=== PATIENT | male | born 1985 | race Two or more races ===

== ENCOUNTER 2021-11-03 12:57 | Inpatient (IN) | payer MEDICAID ==
[~2021-11-03] VITALS: Ht 172.7 cm; Wt 87.5 kg
[2021-11-03] MEDS ORDERED: RISP0.5T39 PO (16:03)
[2021-11-03] MEDS ORDERED: ZOLPIDEM TARTRATE 10 MG TABLET PO PRN (18:00)
[2021-11-03] MEDS ORDERED: LORazepam 2 MG TABLET PO PRN (18:00)
[2021-11-03] MEDS ORDERED: HALOPERIDOL 5 MG TABLET PO PRN (18:00)
[2021-11-03 18:28] VITALS: BP 146/81
[2021-11-03 20:08] VITALS: BP 128/83
[2021-11-04 00:20] VITALS: BP 115/72
[2021-11-04 07:32] LABS: BASOPHILS % (AUTO) 0.5 % (0.0-2.0); EOSINOPHILS % (AUTO) 1.9 % (1.0-6.0); HEMATOCRIT 40.8 % (41-53); HEMOGLOBIN 14.6 g/dL (13.5-17.5); LYMPHOCYTES # (AUTO) 2.8 K/uL (1.0-4.8); LYMPHOCYTES % (AUTO) 37.6 % (22.0-44.0); MEAN CORPUSCULAR HEMOGLOBIN 31.2 pg (26.0-34.0); MEAN CORPUSCULAR HGB CONC 35.8 G/dL (31.0-37.0); MEAN CORPUSCULAR VOLUME 87 fL (80-100); MONOCYTES # (AUTO) 0.5 K/uL (0.1-1.0); MONOCYTES % (AUTO) 6.5 % (2.0-9.0); NEUTROPHILS # (AUTO) 4.1 K/uL (1.8-7.7); NEUTROPHILS % (AUTO) 53.5 % (40.0-70.0); PLATELET COUNT (AUTO) 193 K/uL (150-450); RED BLOOD CELL COUNT(AUTO) 4.69 MIL/uL (4.50-5.90); RED CELL DISTRIBUTION WIDTH 13.2 % (11.5-14.5)
[2021-11-04 07:59] LABS: HEMOGLOBIN A1C 8.9 % (3.8-5.6)
[2021-11-04 08:09] LABS: ALANINE AMINOTRANSFERASE 104 U/L (12-78); ALBUMIN 3.3 g/dL (3.4-5.0); ALKALINE PHOSPHATASE 44 U/L (46-116); ANION GAP 10 mmol/L (8-16); ASPARTATE AMINOTRANSFERASE 37 U/L (15-37); BILIRUBIN,TOTAL 0.8 mg/dL (0.1-1.0); CARBON DIOXIDE 31 mmol/L (22-29); CHLORIDE 99 mmol/L (98-107); CHOL/HDL RATIO 6.7 (4.2-7.3); CHOLESTEROL 214 mg/dL (131-200); CREATININE 0.76 mg/dL (0.60-1.30); FREE T4 (FREE THYROXINE) 1.51 ng/dL (0.76-1.46); GLUCOSE,RANDOM 175 mg/dL (70-110); HDL CHOLESTEROL 32 mg/dL (40-60); POTASSIUM 3.4 mmol/L (3.5-5.1); SODIUM SERUM 140 mmol/L (136-145); THYROID STIMULATING HORMONE 1.75 uIU/mL (0.36-3.74); TOTAL PROTEIN, SERUM 6.6 g/dL (6.4-8.2); TRIGLYCERIDES 798 mg/dL (15-150); UREA NITROGEN, BLOOD 13 mg/dL (7-18)
[2021-11-04 08:10] LABS: GLOMERULAR FILTR. RATE CALC > 60 mL/min (>60)
[2021-11-04 08:12] VITALS: BP 109/65
[2021-11-04 22:38] VITALS: BP 106/69
[2021-11-04] MEDS ORDERED: MAGNESIUM HYDROXIDE SUSPENSION 30 ML UDCUP PO PRN (23:15)
[2021-11-04] MEDS ORDERED: IBUPROFEN 600 MG TABLET PO PRN (23:15)
[2021-11-04] MEDS ORDERED: BENZOCAINE/MENTHOL LOZENGE PO PRN (23:15)
[2021-11-04] MEDS ORDERED: DOCUSATE SODIUM 100 MG CAPSULE PO PRN (23:15)
[2021-11-04] MEDS ORDERED: LOPERAMIDE HCL 2 MG CAPSULE PO PRN (23:15)
[2021-11-04] MEDS ORDERED: MAG HYDROX/AL HYDROX/SIMETH ES 30 ML SUSPENSION UDCUP PO PRN (23:15)
[2021-11-04] MEDS ORDERED: ACETAMINOPHEN 325 MG TABLET PO PRN (23:15)
[2021-11-04] MEDS ORDERED: GLUCAGON,HUMAN RECOMBINANT 1 MG VIAL IM PRN (23:15)
[2021-11-04] MEDS ORDERED: POTASSIUM CHLORIDE 20 MEQ ER TABLET PO ONE (23:15)
[2021-11-04] MEDS ORDERED: BACITRACIN 28 GM OINTMENT TP PRN (23:15)
[2021-11-04] MEDS ORDERED: CloNIDine HCL 0.1 MG TABLET PO PRN (23:15)
[2021-11-04] MEDS ORDERED: OMEPRAZOLE 20 MG CAPSULE PO PRN (23:15)
[2021-11-04] MEDS ORDERED: ONDANSETRON HCL 4 MG TABLET PO PRN (23:15)
[2021-11-04] MEDS ORDERED: PETROLATUM,WHITE 28 GM JELLY TP PRN (23:15)
[2021-11-04] MEDS ORDERED: ALBUTEROL SULFATE HFA 90 MCG/PUFF 8 GM INHALER IH PRN (23:15)
[2021-11-05] MEDS: MetFORMIN HCL 500 MG TABLET PO SCH ×2 (06:26→16:31)
[2021-11-05 06:55] LABS: BASOPHILS % (AUTO) 0.8 % (0.0-2.0); EOSINOPHILS % (AUTO) 1.7 % (1.0-6.0); HEMATOCRIT 42.3 % (41-53); HEMOGLOBIN 15.2 g/dL (13.5-17.5); LYMPHOCYTES % (AUTO) 37.2 % (22.0-44.0); MEAN CORPUSCULAR HEMOGLOBIN 31.3 pg (26.0-34.0); MEAN CORPUSCULAR HGB CONC 35.9 G/dL (31.0-37.0); MEAN CORPUSCULAR VOLUME 87 fL (80-100); MONOCYTES # (AUTO) 0.5 K/uL (0.1-1.0); MONOCYTES % (AUTO) 6.7 % (2.0-9.0); NEUTROPHILS # (AUTO) 4.3 K/uL (1.8-7.7); NEUTROPHILS % (AUTO) 53.6 % (40.0-70.0); PLATELET COUNT (AUTO) 151 K/uL (150-450); RED BLOOD CELL COUNT(AUTO) 4.85 MIL/uL (4.50-5.90); RED CELL DISTRIBUTION WIDTH 13.2 % (11.5-14.5)
[2021-11-05 07:14] LABS: ALANINE AMINOTRANSFERASE 105 U/L (12-78); ALBUMIN 3.6 g/dL (3.4-5.0); ALKALINE PHOSPHATASE 50 U/L (46-116); ANION GAP 7 mmol/L (8-16); ASPARTATE AMINOTRANSFERASE 36 U/L (15-37); BILIRUBIN,TOTAL 0.8 mg/dL (0.1-1.0); CALCIUM, TOTAL 9.1 mg/dL (8.8-10.5); CARBON DIOXIDE 33 mmol/L (22-29); CHLORIDE 102 mmol/L (98-107); CREATININE 0.81 mg/dL (0.60-1.30); GLUCOSE,RANDOM 192 mg/dL (70-110); PHOSPHORUS 4.3 mg/dL (2.5-4.9); POTASSIUM 3.8 mmol/L (3.5-5.1); SODIUM SERUM 142 mmol/L (136-145); UREA NITROGEN, BLOOD 13 mg/dL (7-18)
[2021-11-05 07:16] LABS: GLOMERULAR FILTR. RATE CALC > 60 mL/min (>60)
[2021-11-05 07:45] LABS: GLUCOMETER DEV NAME(LOC) BV2X.2; GLUCOSE,POINT OF CARE 189 MG/DL (70-110)
[2021-11-05 08:34] VITALS: BP 123/79
[2021-11-05] MEDS: RisperiDONE 3 MG TABLET PO SCH ×2 (08:40→16:32)
[2021-11-05] MEDS: DIVALPROEX SODIUM 500 MG DR TABLET PO SCH ×2 (08:41→20:16)
[2021-11-05 12:06] LABS: GLUCOMETER DEV NAME(LOC) BV2X.2; GLUCOSE,POINT OF CARE 257 MG/DL (70-110)
[2021-11-05 16:46] LABS: GLUCOMETER DEV NAME(LOC) BV2X.2; GLUCOSE,POINT OF CARE 211 MG/DL (70-110)
[2021-11-05 20:16] VITALS: BP 136/82
[2021-11-05] MEDS: ATORVASTATIN CALCIUM 20 MG TABLET PO SCH (20:16)
[2021-11-05] MEDS: INSULIN LISPRO 100 UNITS/ML SQ PRN (20:32)
[2021-11-05 21:11] LABS: GLUCOMETER DEV NAME(LOC) BV2X.2; GLUCOSE,POINT OF CARE 241 MG/DL (70-110)
[2021-11-06 06:37] LABS: GLUCOMETER DEV NAME(LOC) BV2X.2; GLUCOSE,POINT OF CARE 253 MG/DL (70-110)
[2021-11-06] MEDS: MetFORMIN HCL 500 MG TABLET PO SCH ×2 (06:49→16:49)
[2021-11-06 08:08] VITALS: BP 126/78
[2021-11-06] MEDS: RisperiDONE 3 MG TABLET PO SCH ×2 (08:26→16:49)
[2021-11-06] MEDS: DIVALPROEX SODIUM 500 MG DR TABLET PO SCH ×2 (08:26→20:19)
[2021-11-06 11:20] LABS: GLUCOMETER DEV NAME(LOC) BV2X.2; GLUCOSE,POINT OF CARE 224 MG/DL (70-110)
[2021-11-06] MEDS: INSULIN LISPRO 100 UNITS/ML SQ PRN ×3 (11:43→20:28)
[2021-11-06 18:16] LABS: GLUCOMETER DEV NAME(LOC) BV2X.2; GLUCOSE,POINT OF CARE 229 MG/DL (70-110)
[2021-11-06 20:09] VITALS: BP 141/86
[2021-11-06] MEDS: ATORVASTATIN CALCIUM 20 MG TABLET PO SCH (20:19)
[2021-11-06 20:45] LABS: GLUCOMETER DEV NAME(LOC) BV2X.2; GLUCOSE,POINT OF CARE 185 MG/DL (70-110)
[2021-11-07 06:27] LABS: GLUCOMETER DEV NAME(LOC) BV2X.2; GLUCOSE,POINT OF CARE 158 MG/DL (70-110)
[2021-11-07] MEDS: MetFORMIN HCL 500 MG TABLET PO SCH ×2 (06:36→16:45)
[2021-11-07] MEDS: INSULIN LISPRO 100 UNITS/ML SQ PRN ×4 (06:37→20:34)
[2021-11-07 08:20] VITALS: BP 123/60
[2021-11-07] MEDS: RisperiDONE 3 MG TABLET PO SCH ×2 (08:26→16:45)
[2021-11-07] MEDS: DIVALPROEX SODIUM 500 MG DR TABLET PO SCH ×2 (08:26→20:26)
[2021-11-07 11:32] LABS: GLUCOMETER DEV NAME(LOC) BV2X.2; GLUCOSE,POINT OF CARE 193 MG/DL (70-110)
[2021-11-07 17:12] LABS: GLUCOMETER DEV NAME(LOC) BV2X.2; GLUCOSE,POINT OF CARE 232 MG/DL (70-110)
[2021-11-07 20:20] VITALS: BP 136/74
[2021-11-07] MEDS: ATORVASTATIN CALCIUM 20 MG TABLET PO SCH (20:26)
[2021-11-07 21:31] LABS: GLUCOMETER DEV NAME(LOC) BV2X.2; GLUCOSE,POINT OF CARE 201 MG/DL (70-110)
[2021-11-08 06:21] LABS: GLUCOMETER DEV NAME(LOC) BV2X.2; GLUCOSE,POINT OF CARE 151 MG/DL (70-110)
[2021-11-08] MEDS: MetFORMIN HCL 500 MG TABLET PO SCH ×2 (06:32→16:42)
[2021-11-08] MEDS: INSULIN LISPRO 100 UNITS/ML SQ PRN ×3 (06:32→16:44)
[2021-11-08 08:27] VITALS: BP 110/74
[2021-11-08] MEDS: RisperiDONE 3 MG TABLET PO SCH ×2 (09:25→16:42)
[2021-11-08] MEDS: DIVALPROEX SODIUM 500 MG DR TABLET PO SCH (09:25)
[2021-11-08 10:21] LABS: GLUCOMETER DEV NAME(LOC) POC.BV
[2021-11-08 11:21] LABS: GLUCOMETER DEV NAME(LOC) BV2X.2; GLUCOSE,POINT OF CARE 215 MG/DL (70-110)
[2021-11-08 16:21] LABS: GLUCOMETER DEV NAME(LOC) BV2X.2; GLUCOSE,POINT OF CARE 298 MG/DL (70-110)
[2021-11-08] MEDS ORDERED: RISP3TAB63 PO (17:55)
[2021-11-08] MEDS ORDERED: DIVA-112 PO (17:55)
[2021-11-08] MEDS ORDERED: ATOR20TA86 PO ×2 (18:28→20:36)
[2021-11-08] MEDS ORDERED: METF-1211 PO ×2 (18:29→20:36)
== END 2021-11-08 19:00 | disposition home or self-care (01) | DRG 750 ==
LOC: B2S 17:51
PROVIDERS: ADMIT Psychiatry & Neurology Psychiatry; ATTEND Psychiatry & Neurology Psychiatry
DX: F25.9 Schizoaffective disorder, unspecified (principal); E11.9 Type 2 diabetes mellitus without complications; R45.851 Suicidal ideations; K59.00 Constipation, unspecified; Z20.822 Contact with and (suspected) exposure to COVID-19; E78.5 Hyperlipidemia, unspecified; F41.9 Anxiety disorder, unspecified; G47.00 Insomnia, unspecified; K21.9 Gastro-esophageal reflux disease without esophagitis
CPT/HCPCS: 80053; 80061; 82962; 83036; 83735; 84100; 84439; 84443; 85025